=== PATIENT | female | born 1990 | race Caucasian/White ===

== ENCOUNTER 2024-01-28 08:09 | Outpatient (AMB) | payer OTHER, SELFPAY ==
--- NOTE | 2024-01-28 08:20 | AM.OFFWIN_ITS ---
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 Intake Note: pt is here for c.o sore throat, concern of strep Patient Tobacco Use Status: Never used Tobacco Allergies No Known Allergies Allergy (Verified 01/28/24 08:45) Medication List - Last Reconciled 01/28/24 by Meño Nunez, MARY albuterol sulfate 90 mcg/actuation inhalation benzocaine-menthol 15-3.6 mg (Cepacol Sore Throat (benzocaine-menthol)) 1 cedric mucous membrane Q2-4H PRN budesonide 180 mcg/actuation (Pulmicort Flexhaler) 2 inhalations inhalation BID Do you need a note to return to daycare/school/sports/work: Yes HPI HPI Comments History of Present Illness Details Patient is a 33-year-old female in today for sick visit. She states that she developed a sore throat 1 day prior to visit, thought that it was due to allergies and try taking allergy medication with no relief. 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 States that her child at home has similar symptoms. Denies fever, chest pain, shortness a breath, dizziness, nausea, vomiting, diarrhea. PFSH Social History Patient Tobacco Use Status: Never used Tobacco Review of Systems Const All systems reviewed & are unremarkable except as noted in HPI and below Physical Exam Vital Signs: Last Vital Signs Temp 98.8 F 01/28/24 08:21 Pulse 96 01/28/24 08:21 BP 108/66 01/28/24 08:21 Pulse Ox 98 01/28/24 08:21 Oxygen Delivery Method Room Air 01/28/24 08:21 BMI result Body Mass Index 20.2 Vital signs reviewed stable Const Other: Appearance: Alert.? Oriented X3.? No acute distress.? Head: Normocephalic, atraumatic. Eyes: Pupils equal, round and reactive to light.? ENT: +pharynx erythema, No exudate. Tonsils +1. No post nasal drip. TM intact and pearly watt. Neck: Normal inspection.? Neck supple.? CVS: Normal heart rate and rhythm.? Pulses normal.? Respiratory: No respiratory distress.? Breath sounds normal.? Neuro: Oriented X 3.? No motor deficit.? No sensory deficit. CN 2-12 intact Results AMB Rapid Strep AMB Rapid Strep Negative Last Edit by Niall Siddiqui CMA on 01/28/24 08 :35 Assessment & Plan Assessment & Plan (1) Pharyngitis: Comment: Patient strep test in office negative. Likely viral. Patient given Cepacol throat lozenges for sore throat relief. Patient instructed she can also utilize Tylenol and or ibuprofen. Code(s): J02.9 - Acute pharyngitis, unspecified Qualifiers: Pharyngitis/tonsillitis etiology: unspecified etiology Qualified Code(s): J02.9 - Acute pharyngitis, unspecified Plan: Take your medications as prescribed. If you were prescribed antibiotics today, it is important that you take your medication to their entirety, do not skip any doses, do not finish them early. Follow-up with your primary care provider this week. Return to the emergency department with new or worsening symptoms. Such as fevers, chills, chest pain, shortness of breath, nausea, vomiting, dizziness, headache, vision changes, lethargy In case of emergency call 911 Plan Follow-up with PCP Orders: Orders AMB Rapid Strep Screen Today Z13.9 - Encounter for screening, unspecified SARS-CoV2/FLU/RSV Today J06.9 - Acute upper respiratory infection, unspecified Medications: New benzocaine-menthol 15-3.6 mg (Cepacol Sore Throat (benzocaine-menthol)) 1 cedric mucous membrane Q2-4H PRN 16 ea 0RF sore throat Coding Level of Care Code New Pt Level 3 (41112) Diagnoses Pharyngitis, unspecified etiology J02.9 Pharyngitis/tonsillitis etiology: unspecified etiology Time Spent (min) 21
[2024-01-28 08:21] VITALS: BP 108/66; PULSE 96; TEMP 37.1; O2SAT 98; BMI 20.2
== END 2024-01-28 09:27 | disposition home or self-care (01) ==
PROVIDERS: PCP Nurse Practitioner Family; Visit Provider Nurse Practitioner Primary Care
DX: J02.9 Acute pharyngitis, unspecified (principal)
CPT/HCPCS: 87880; 99203

== ENCOUNTER 2024-01-28 10:19 | Outpatient (REF) | payer OTHER, SELFPAY ==
[2024-01-28 11:23] LABS: Influenza A PCR NEGATIVE (Negative); Influenza B PCR NEGATIVE (Negative); Resp Syncy Virus RNA Qual PCR NEGATIVE (Negative); SARS COV2 PCR INHOUSE NEGATIVE (Negative)
== END 2024-01-28 10:20 | disposition home or self-care (01) ==
LOC: HO.LNP 10:19
PROVIDERS: Visit Provider Nurse Practitioner Primary Care
DX: Z11.52 Encounter for screening for COVID-19 (principal); J06.9 Acute upper respiratory infection, unspecified
CPT/HCPCS: 0241U

== ENCOUNTER 2024-06-09 08:08 | Emergency (ER) | payer OTHER, SELFPAY ==
--- NOTE | ~2024-06-09 | US_ITS ---
EXAMINATION: US APPENDIX CLINICAL INFORMATION: RLQ pain, r/o appe COMPARISON: None. TECHNIQUE: Imaging of the right lower quadrant was performed with a high-frequency linear transducer using graded compression. FINDINGS: Appendix: Partially visualized appendix. Location: Right lower quadrant. Fluid-filled: No. Compressible: Yes. Maximum Diameter With Compression (Outer Wall To Outer Wall): 0.3 cm (normal less 0.7 cm). Appendicolith: No. Wall: Hyperemia: No. Thickening (>0.2 cm): No. Loss of Mural Stratification: No. Free Fluid: No. Increased Echogenicity Of Periappendiceal Fat: No. Mesenteric Lymph Nodes: Yes, normal in size measuring up to 3 mm in short axis. Abscess: No. Right Kidney: Normal without hydronephrosis. Bladder: Partly distended and unremarkable. Additional Abnormalities: None. US/US appendix IMPRESSION: Partially visualized normal-appearing appendix with no ancillary findings to suggest appendicitis. Alternative/Additional Diagnosis: None Electronically signed by: Aris Cee MD 06/09/2024 11:37 AM EDT
--- NOTE | ~2024-06-09 | US_ITS ---
EXAMINATION: US PELVIS COMPLETE US PELVIS ENDOVAGINAL WITH DOPPLER CLINICAL INFORMATION: 5 wks preg, right abd pain COMPARISON: None. TECHNIQUE: Transabdominal and transvaginal images of the pelvis were obtained. Color and spectral Doppler evaluation of the ovaries was performed. FINDINGS: UTERUS: Retroverted. Uniform, homogeneous secretory phase endometrium measures 1.5 cm in width. No intrauterine gestational sac identified. RIGHT OVARY: Normal size and echogenicity measuring 2.6 x 1.5 x 1.6 cm, containing a physiologic 1.7 cm corpus luteal cyst LEFT OVARY: Normal size and echogenicity measuring 2.0 x 1.2 x 1.6 cm. Normal size and appearance. FREE FLUID: Small anechoic pelvic cul-de-sac free fluid. US/US OB pelvic and transvaginal IMPRESSION: 1. Findings compatible with a of unknown location, which may reflect early intrauterine gestation, missed spontaneous , or ectopic , though none visualized. Recommend close clinical follow-up with trending of serum beta hCG levels and repeat ultrasound as clinically warranted. 2. Normal ovaries without sonographic evidence of torsion. Electronically signed by: Aris Cee MD 06/09/2024 11:41 AM EDT
[2024-06-09 08:12] VITALS: BP 111/60; PULSE 75; RESP 16; TEMP 36.8; O2SAT 100; BMI 20.2
[2024-06-09 08:30] LABS: MANUAL DIFF FLAG NO
[2024-06-09 08:32] LABS: Appearance Urine Clear; Basophils Percent Auto 0.5 % (0-2); Color Urine Yellow; Eosinophils Absolute Auto 0.2 X10*3/uL (0.0-0.4); Glucose Urine UA Negative (Negative); Hematocrit 40.5 % (37.0-47.0); Hemoglobin 14.3 g/dl (12.0-16.0); Imm Gran Abs Auto 0.02 X10*3/uL (0.00-0.03); Imm Gran Pct Auto 0.3 % (0.0-0.4); Leukocyte Esterase Urine Negative (Negative); Lymphocytes Absolute Auto 2.2 X10*3/uL (1.2-4.9); Lymphocytes Percent Auto 36.1 % (20-40); Mean Corpuscular HGB Conc 35.3 g/dl (31.0-35.0); Mean Corpuscular Hemoglobin 29.7 pg (27.0-33.0); Mean Corpuscular Volume 84.2 fL (80.0-98.0); Mean Platelet Volume 9.8 fL (9.4-12.3); Monocytes Absolute Auto 0.4 X10*3/uL (0.1-1.2); Monocytes Percent Auto 6.6 % (2-11); Neutrophils Absolute Auto 3.2 x10*3/uL (2.0-8.3); Neutrophils Percent Auto 53.5 % (45-73); Nitrite Urine Negative (Negative); PH 8.5 (5.0-9.0); Platelet Count 355 X10*3/uL (160-400); Red Blood Count 4.81 X10*6/uL (4.20-5.50); Urine Blood Negative (Negative); Urine Ketones Negative (Negative); Urine Protein Negative (Neg-Trace); White Blood Count 6.1 X10*3/uL (4.8-10.8)
[2024-06-09 08:53] LABS: Alanine Aminotransferase 14 U/L (0-31); Albumin Level 4.7 g/dL (3.5-5.0); Alkaline Phosphatase 47 U/L (39-117); Anion Gap 12 (12-20); Aspartate Amino Transferase 15 U/L (5-31); Bilirubin Direct 0.2 mg/dL (0.0-0.5); Bilirubin Total 0.6 mg/dL (0.0-1.0); Blood Urea Nitrogen 9 mg/dL (9-16); Calcium 9.8 mg/dL (8.4-10.2); Carbon Dioxide 24 mmol/L (22-29); Chloride 107 mmol/L (96-108); Estimated Glomerular Filt Rate > 60; Glucose Random 98 mg/dL (60-115); Lipase 12 U/L (8-78); Potassium 3.8 mmol/L (3.3-5.1); Sodium 139 mmol/L (135-145); Total Protein 7.8 g/dL (6.5-8.0)
[2024-06-09 08:54] LABS: HCG Quantitative 1021 mIU/mL
--- NOTE | 2024-06-09 09:01 | ED_ITS ---
HPI - Abdominal Pain General Chief Complaint: Abdominal Pain Stated Complaint: Abd pain R side - 5 weeks Time Seen by Provider: 06/09/24 08:59 Source: patient, RN notes reviewed and old records reviewed Mode of arrival: ambulatory Limitations: no limitations History of Present Illness ED Provider: JAY HINSON PA-C HPI narrative: 34 year old A1 female, currently 5 weeks gestation, pmhx significant for Perez's thyroiditis presents to the Emergency Department today for evaluation of right lower quadrant abdominal pain x24 hours. Pain originates in the RLQ and radiates down her RLE and into her right back. Reports pain began while sitting at work yesterday and has been constant since onset, although waxes and wanes in intensity. She rates her pain 4/10 at present. Denies history of similar. No abdominal cramping. Admits to associated nausea without vomiting. She has been taking Tylenol 1000 mg with minimal improvement, last dose around 0200 this morning. Patient reports positive home test. LMP 05/05. She has not followed up with OBGYN for conformational US. This is her 3rd . Reports one living child who is 4 years old and a history of voluntary prior to that. Reports calling the on-call OBGYN last night who advised her to come to the ED to r/o appendicitis. Denies fever, chills, decreased appetite, diarrhea, constipation, dysuria, hematuria, vaginal bleeding, vaginal discharge. Denies history of abdominal surgery. Related Data Home Medications ?Medication ?Instructions ?Recorded ?Confirmed albuterol sulfate 90 mcg/actuation inhalation 01/28/24 01/28/24 aerosol inhaler budesonide 180 mcg/actuation 2 inh inhalation BID 01/28/24 01/28/24 breath activated powder inhaler (Pulmicort Flexhaler) Previous Rx's ?Medication ?Instructions ?Recorded benzocaine 15 mg-menthol 3.6 mg 1 cedric mucous membrane Q2-4H PRN 01/28/24 lozenges (Cepacol Sore Throat sore throat #16 ea (benzocaine-menthol)) Allergies Allergy/AdvReac Type Severity Reaction Status Date / Time lactase [From Dairy Aid] Allergy Swelling Verified 06/09/24 08:13 Review of Systems Review of Systems Constitutional: No fever, chills, fatigue, night sweats, weight changes ENT/Mouth: No ear pain, hearing loss, nasal congestion, sinus pain, rhinorrhea, sore throat Eyes: No eye pain, swelling, redness, vision changes, discharge Cardio: No chest pain, palpitations, ONEAL, orthopnea, peripheral edema Pulm: No SOB, cough, sputum, wheezing, dyspnea, hemoptysis GI: No vomiting, hematemesis, diarrhea, constipation, hematochezia, melena, +RLQ pain, +nausea : No irregular bleeding, dysuria, frequency, urgency, hesitancy, hematuria, flank pain, urinary flow changes, urinary incontinence or retention MSK: No back pain, neck pain, joint pain, myalgias Skin: No lesions, rashes Neuro: No weakness, numbness, paresthesias, LOC, dizziness, headache Psych: No anxiety/panic, depression, SI/HI, AH/VH All other systems reviewed and are negative. [facility] Past Medical History Attestation statement: The following information was validated with the patient. Source: old records reviewed and nursing notes reviewed Social History Social History Patient Tobacco Use Status: Never used Tobacco Advance Directives: No Advance Directives Information Provided: Yes Physical Exam ED Vital Signs: Vital Signs - 24 hr 06/09/24 08:12 06/09/24 12:00 06/09/24 17:55 Temperature 98.2 F 96.7 F L 97.3 F Pulse Rate 75 67 73 Respiratory Rate 16 Blood Pressure 111/60 102/62 113/44 L Pulse Oximetry 100 100 100 Oxygen Delivery Method Room Air Room Air Room Air BMI result Body Mass Index 20.2 vital signs stable Const General: cooperative, healthy appearing, comfortable and no acute distress Orientation/consciousness: patient oriented x3 Limitations: no limitations HENMT Head: Yes normal to inspection, Yes No palpable skull fracture present, Yes normocephalic and Yes atraumatic Eyes General: appearance normal, both eyes and all related structures Conjunctivae: conjunctivae normal Sclerae: sclerae normal Pupils: Equal, round and reactive pupils present Neck Neck: Yes normal visual inspection, Yes full ROM and Yes no lymphadenopathy Resp Effort & Inspection: normal respiratory effort and able to speak in complete sentences Auscultation: clear to auscultation bilaterally Cardio Rate: regular rate Rhythm: regular rhythm GI Other: Soft, nondistended, mildly tender to palpation of right lower quadrant without palpable mass. No rebound or guarding. Negative Rovsing sign. Negative McBurney point tenderness. Normoactive bs x4. General: Yes no CVA tenderness Back/Spine/Pelvis Back: no CVA tenderness Skin General skin exam: no rashes or lesions noted Neuro General: patient oriented x3 Cranial nerves: Yes Equal, round and reactive pupils present Course Course Course Narrative: 0945 -- CBC without leukocytotis or left shift. no anemia. h&h stable. chemistry without acute electrolyte abnormality requiring intervention. no KAREN. normal liver function. bHCG 1021, consistent with GA. urine is negative for infection/ blood. TSH and free T4 wnl. > patient offered vitamin b6/ Benadryl for nausea, Tylenol for pain, and IVF however declining all interventions at this time. > US appendix/ pelvic/TV pending 1714-- US appendix without findings concerning for acute appendicitis. US pelvic/ TV showing findings consistent with of unknown location - question IUP vs missed spontaneous vs ectopic although none visualized. Missed spontaneous unlikely as patient denies vaginal bleeding. Concern for ectopic versus IUP. At this time we do not have OBGYN coverage. Will reach out to [facility] ED for transfer as ectopic cannot definitively be ruled out. Patient agreeable with this. 1750-- Discussed case with Dr. Abigail Becker at [facility] who has accepted patient transfer d/t concern for ectopic . Patient is declining ambulance transfer and would prefer her drive her via private vehicle. She is stable at this time. Advised her to go to the [facility]. Patient is employed at [employer] and is aware of where to go. Patient has remained stable throughout ED visit today. Discussed worrisome signs and symptoms and when to return to the ED. All questions answered at this time. Patient is agreeable with disposition and stable for transfer to [facility]. Medical Decision Making Medical Decision Making [facility] Narrative: 34 year old A1 female, currently 5 weeks gestation, pmhx significant for Perez's thyroiditis presents to the Emergency Department today for evaluation of right lower quadrant abdominal pain x24 hours. VSS. She is nontoxic appearing and in NAD. Abd soft, nondistended, mildly tender to palpation of right lower quadrant without palpable mass. Negative Rovsing sign. Negative McBurney point tenderness. Normoactive bs x4. no CVAT. This female patient presents with lateralized pelvic pain, concerning for?ectopic , IUP, appendicitis. Differential diagnosis includes includes TOA, PID, and other infectious causes but patient has no constitutional symptoms of infection and does not endorse vaginal discharge. Also includes UTI, pyelo, endometriosis, adenomyosis but these are less likely. Doubt other primary gastrointestinal process. Lower suspicion for thyroid abnormality. Plan: labs, UA, bhcg, pelvic US, pain and nausea control, fluid resuscitation, reassessment. Differential Diagnosis Differential Diagnoses: The differential diagnosis associated with the presentation includes as above. Admission/Observation not indicated. Consult Healthcare Provider Management of the patient was discussed with: [employer] [facility] OBGYJulius Becker Lab Data MDM Lab Attestation statement: I reviewed the patient's lab results. as above. 06/09/24 08:27 06/09/24 08:27 Labs: Lab Results 06/09/24 Range/Units 08:27 WBC 6.1 (4.8-10.8) X10*3/uL RBC 4.81 (4.20-5.50) X10*6/uL Hgb 14.3 (12.0-16.0) g/dl Hct 40.5 (37.0-47.0) % MCV 84.2 (80.0-98.0) fL MCH 29.7 (27.0-33.0) pg MCHC 35.3 H (31.0-35.0) g/dl RDW 12.0 (11.0-16.0) % Plt Count 355 (160-400) X10*3/uL MPV 9.8 (9.4-12.3) fL Immature Gran % (Auto) 0.3 (0.0-0.4) % Neut % (Auto) 53.5 (45-73) % Lymph % (Auto) 36.1 (20-40) % [place] % (Auto) 6.6 (2-11) % Eos % (Auto) 3.0 (0-4) % Baso % (Auto) 0.5 (0-2) % Lymph # (Auto) 2.2 (1.2-4.9) X10*3/uL [place] # (Auto) 0.4 (0.1-1.2) X10*3/uL Eos # (Auto) 0.2 (0.0-0.4) X10*3/uL Baso # (Auto) 0.0 (0.0-0.2) X10*3/uL Abs Immat Gran (auto) 0.02 (0.00-0.03) X10*3/uL Absolute Neuts (auto) 3.2 (2.0-8.3) x10*3/uL Absolute Nucleated RBC 0.000 (0.0-0.012) X10*3/uL Nucleated RBC % (auto) 0.0 (0.0-0.2) /100WBC Sodium 139 (135-145) mmol/L Potassium 3.8 (3.3-5.1) mmol/L Chloride 107 (96-108) mmol/L Carbon Dioxide 24 (22-29) mmol/L Anion Gap 12 (12-20) BUN 9 (9-16) mg/dL Creatinine 0.83 (0.5-1.4) mg/dL Estim Creat Clear Calc 72.0 Estimated GFR > 60 Random Glucose 98 (60-115) mg/dL Calcium 9.8 (8.4-10.2) mg/dL Total Bilirubin 0.6 (0.0-1.0) mg/dL Direct Bilirubin 0.2 (0.0-0.5) mg/dL AST 15 (5-31) U/L ALT 14 (0-31) U/L Alkaline Phosphatase 47 (39-117) U/L Total Protein 7.8 (6.5-8.0) g/dL Albumin 4.7 (3.5-5.0) g/dL Lipase 12 (8-78) U/L TSH 2.37 (0.32-4.0) uIU/mL Free T4 1.01 (0.71-1.85) ng/dL Beta HCG, Quant 1021 mIU/mL Urine Color Yellow Urine Appearance Clear Urine pH 8.5 (5.0-9.0) Ur Specific Mims 1.010 (1.005-1.025) Urine Protein Negative (Neg-Trace) mg/dL Urine Glucose (UA) Negative (Negative) mg/dL Urine Ketones Negative (Negative) mg/dL Urine Blood Negative (Negative) Urine Nitrite Negative (Negative) Ur Leukocyte Esterase Negative (Negative) Independent Interpretation I performed an independent interpretation of an: Ultrasound Interpretation: US appendix without thickening of the appendix wall, agree with radiologist's interpretation. US pelvic/ TV without evidence of IUP, agree with radiolgoist's interpretation. Radiology Impression Discussion of test interpretation with radiology: I have reviewed the radiologist's reading. Radiologist Impression: EXAMINATION: US PELVIS COMPLETE US PELVIS ENDOVAGINAL WITH DOPPLER CLINICAL INFORMATION: 5 wks preg, right abd pain COMPARISON: None. TECHNIQUE: Transabdominal and transvaginal images of the pelvis were obtained. Color and spectral Doppler evaluation of the ovaries was performed. FINDINGS: UTERUS: Retroverted. Uniform, homogeneous secretory phase endometrium measures 1.5 cm in width. No intrauterine gestational sac identified. RIGHT OVARY: Normal size and echogenicity measuring 2.6 x 1.5 x 1.6 cm, containing a physiologic 1.7 cm corpus luteal cyst LEFT OVARY: Normal size and echogenicity measuring 2.0 x 1.2 x 1.6 cm. Normal size and appearance. FREE FLUID: Small anechoic pelvic cul-de-sac free fluid. IMPRESSION: 1. Findings compatible with a of unknown location, which may reflect early intrauterine gestation, missed spontaneous , or ectopic , though none visualized. Recommend close clinical follow-up with trending of serum beta hCG levels and repeat ultrasound as clinically warranted. 2. Normal ovaries without sonographic evidence of torsion. Electronically signed by: Aris Cee MD 06/09/2024 11:41 AM EDT US APPENDIX CLINICAL INFORMATION: RLQ pain, r/o appe COMPARISON: None. TECHNIQUE: Imaging of the right lower quadrant was performed with a high-frequency linear transducer using graded compression. FINDINGS: Appendix: Partially visualized appendix. Location: Right lower quadrant. Fluid-filled: No. Compressible: Yes. Maximum Diameter With Compression (Outer Wall To Outer Wall): 0.3 cm (normal less 0.7 cm). Appendicolith: No. Wall: Hyperemia: No. Thickening (>0.2 cm): No. Loss of Mural Stratification: No. Free Fluid: No. Increased Echogenicity Of Periappendiceal Fat: No. Mesenteric Lymph Nodes: Yes, normal in size measuring up to 3 mm in short axis. Abscess: No. Right Kidney: Normal without hydronephrosis. Bladder: Partly distended and unremarkable. Additional Abnormalities: None. IMPRESSION: Partially visualized normal-appearing appendix with no ancillary findings to suggest appendicitis. Alternative/Additional Diagnosis: None Electronically signed by: Aris Cee MD 06/09/2024 11:37 AM EDT RP Independent Historian Clinical information obtained from an independent historian. History obtained from or confirmed by: Spouse External Record Review External record reviewed: Inpatient record Prescription Management I considered prescription management with: Pain Medication Chronic Conditions Patient?s care impacted by: Other () Social Determinants Patient?s care significantly limited by Social Determinants of Health including: Other Social Determinant of Health Medications Administered Discontinued Medications Generic Name Dose Route Start Last Admin Trade Name Arminda PRN Reason Stop Dose Admin Acetaminophen 975 mg 06/09/24 09:06 06/09/24 12:03 Acetaminophen 325 Mg Tablet PO 06/09/24 09:07 975 mg ONCE ONE Administration Diphenhydramine HCl 50 mg 06/09/24 09:06 06/09/24 09:29 Diphenhydramine Hcl 25 Mg Capsule PO 06/09/24 09:07 Not Given ONCE ONE Pyridoxine HCl 25 mg 06/09/24 09:06 06/09/24 09:29 Pyridoxine Hcl (Vitamin B6) 50 Mg Tablet PO 06/09/24 09:07 Not Given ONCE ONE Critical Care Time Critical Care Time Critical Care Time: Yes Total Critical Care Time: 36 Attestation: Critical care time in the amount of 36 minutes has been provided to the patient in terms of direct patient care, frequent reevaluation, consultation with [facility] OBGYN, review and interpretation of medical data and results, and management of potentially life-threatening conditions. This is all outside of any medical procedures. Discharge Plan Discharge Clinical Impression: Elevated serum hCG, Pelvic pain Patient Disposition: [facility] Transfer Details: [facility] w/ accepting physician Dr. Abigail Becker via private vehicle Instructions: Ectopic (DC), (ED), Pelvic Pain (ED) Additional Instructions: Your blood work today is reassuring. Your urine is negative for infection. Your pelvic ultrasound shows findings consistent with of unknown location . We cannot definitively rule out ectopic especially given your pain. We discussed your case with [facility] OBGYN as we do not currently have OBGYN coverage and they are recommending transfer for further evaluation. You are declining ambulance transfer to [facility] and are opting to take private vehicle. Please go to [facility] and look for the [place] entrance for [facility] [place]. Dr. Abigail Becker is the accepting physician. Prescriptions: No Action albuterol sulfate 90 mcg/actuation HFA aerosol inhaler inhalation Pulmicort Flexhaler 180 mcg/actuation aerosol powdr breath activated 2 inh inhalation BID Cepacol Sore Throat (kenji-men) 15-3.6 mg lozenge 1 cedric mucous membrane Q2-4H PRN (Reason: sore throat) Qty: 16 0RF Print Language: Serbian
--- NOTE | 2024-06-09 09:29 | PC.NURSE ---
patient refused medications, states she feels oky right now.
[2024-06-09 10:40] LABS: Free T4 (Free Thyroxine) 1.01 ng/dL (0.71-1.85); Thyroid Stimulating Hormone 2.37 uIU/mL (0.32-4.0)
[2024-06-09 12:00] VITALS: BP 102/62; PULSE 67; TEMP 35.9; O2SAT 100
[2024-06-09] MEDS: Acetaminophen 325 MG TABLET 975 MG PO (12:03)
[2024-06-09 17:55] VITALS: BP 113/44; PULSE 73; TEMP 36.3; O2SAT 100
--- OUTSIDE RECORDS SUMMARY | 2024-06-10 08:07 | XMS_ITS | Continuity of Care Document ---
Author Organization [facility] Address [address] [place] [address]- Care Team Providers Care Juvenile Probation Officer Name Role Phone Mariano ALVAREZ, Chelsy Cherry Primary Care Physician [phone] Encounter [facility] Date(s): 03/12/23 - 03/19/23 [facility] [address] [place] [address]- Encounter Diagnosis History of depression(Discharge Diagnosis) - 03/12/23 Attending Physician: Chelsy Quintana NP Referring Physician: Erich Chavis MD Immunizations Given and Recorded Vaccine Date Status Refusal Reason tetanus-diphtheria toxoids (Td) 03/12/23 Given SARS-CoV-2 (COVID-19) mRNA BNT-162b2 vac 01/23/21 Recorded SARS-CoV-2 (COVID-19) mRNA BNT-162b2 vac 11/25/20 Recorded Problem List Condition Confirmation Course Effective Dates Status Health St [facility] Informant Asthma Confirmed 05/02/20 Active Mixed anxiety and depressive disorder Confirmed 09/10/19 Active Thyroid nodule Confirmed 05/02/20 Active Diagnosis Diagnosis Type Effective Dates Health Status Clinical Service Informant History of depression Discharge Diagnosis 03/12/23 Vital Signs Most recent to oldest [Reference Range]: 1 Height 155 cm (03/12/23 3:13 PM) Weight 49.0 kg (03/12/23 3:13 PM) Oxygen Saturation [94-100 %] 100 % (03/12/23 3:13 PM) Pulse Rate [55-90 bpm] 75 bpm (03/12/23 3:13 PM) Body Mass Index [18.5-24.99 kg/m2] 20.4 kg/m2 (03/12/23 3:13 PM) Blood Pressure [90-138/55-84 mm Hg] 106/ 55mm Hg (03/12/23 3:13 PM) Blood pressure sites Arm, right (03/12/23 3:13 PM) Weight Obtained Via Standing scale (03/12/23 3:13 PM) Patient Care team information Care Team Personnel Name: Chelsy Quintana NP Position: S PCO Associate Professional Member Role: PCP Address: Address: [address] [place] [id number]- Care Team Related Persons Name: MARILYN ROSAS Address: [place] [address]
--- OUTSIDE RECORDS SUMMARY | 2024-06-10 08:07 | XMS_ITS | Continuity of Care Document ---
Author Organization [facility] Hernandez Curry Jono Address [address] [place] [address]- Care Team Providers Care Fire Extinguisher Repairer Name Role Phone Mariano ALVAREZ, Chelsy Cherry Primary Care Physician Encounter [facility] Date(s): 01/31/24 - 03/01/24 [facility] Hernandez Michaelsley Adult [address] [place] [address]- Attending Physician: Admtr, Ar8 Admitting Physician: Admtr, Ar8 Referring Physician: Admtr, Ar8 Allergies, Adverse Reactions, Alerts Substance Reaction Severity Status Lactose rash Active Immunizations Given and Recorded Vaccine Date Status Refusal Reason tetanus-diphtheria toxoids (Td) 03/12/23 Given SARS-CoV-2 (COVID-19) mRNA BNT-162b2 vac 01/23/21 Recorded SARS-CoV-2 (COVID-19) mRNA BNT-162b2 vac 11/25/20 Recorded Medications albuterol CFC free 90 mcg/inh inhalation aerosol 2, puffs, Inhalation, Every 4 hours, PRN, # 6.7 Gm, Refills 11, Tot. Refills 11, Maintenance, 08/15/23 16:03:00 EDT, Aerosol, Route to Pharmacy Electronically, [id number], [facility]/pharmacy #[id number], 155, cm, 08/15/23 10:28:00 EDT, H... Start Date: 08/15/23 Status: Ordered Pulmicort Flexhaler 180 mcg 1 puffs, Inhalation, 2 times a day, # 3 each, 11 Refills, Maintenance, 08/15/23 16:02:00 EDT, Powder, [facility]/pharmacy #[id number], Partial fill upon patient request if the prescription is for a schedule II opioid drug., 1 puffs Inhalation 2 times a day, 155, c... 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
--- OUTSIDE RECORDS SUMMARY | 2024-06-10 08:07 | XMS_ITS | Continuity of Care Document ---
Author Organization [facility] Hernandez Muse Jono Address [address] [place] [address]- Care Team Providers Care Monogram Maker Name Role Phone Mariano ALVAREZ, Chelsy Cherry Primary Care Physician [phone] Encounter [facility] Date(s): 01/31/24 - 02/07/24 [facility] Muse Adult [address] [place] [address]- Encounter Diagnosis Viral pharyngitis(Discharge Diagnosis) - 01/31/24 Attending Physician: Not on Staff, Attending MD Allergies, Adverse Reactions, Alerts Substance Reaction Severity [...] 16:03:00 EDT, Aerosol, Route to Pharmacy Electronically, [id number], [id number], 155, cm, 08/15/23 10:28:00 EDT, H... Start Date: 08/15/23 Status: Ordered Lidocaine Viscous 2% solution 1 application, Topically, 4 times a day, PRN for mouth sore pain, # 100 mL, 0 Refills, Acute 02/18/24 21:00:00 EDT, 01/31/24 11:09:00 EDT, Solution, [id number], Partial fill upon patient request if the prescription is for a schedule II opioid... Start Date: 01/31/24 Stop Date: 02/18/24 Status: Ordered Pulmicort Flexhaler 180 mcg 1 puffs, Inhalation, 2 times a day, # 3 each, 11 Refills, Maintenance, 08/15/23 16:02:00 EDT, Powder, [id number], Partial fill upon patient request if [...] Effective Dates Health Status Clinical Service Informant Viral pharyngitis Discharge Diagnosis 01/31/24 Vital Signs Most recent to oldest [Reference Range]: 1 2 Height 155 cm (01/31/24 11:25 AM) 155 cm (01/31/24 10:49 AM) Weight 49.5 kg (01/31/24 10:49 AM) Pulse Rate [55-90 bpm] 97 bpm *H* (01/31/24 10:49 AM) Body Mass Index [18.5-24.99 kg/m2] 20.6 kg/m2 (01/31/24 10:49 AM) Blood Pressure [90-138/55-84 mm Hg] 98/6 2mm Hg (01/31/24 11:25 AM) 88/51mm Hg *L* (01/31/24 10:49 AM) Temperature [96.8-100.4 DegF] 98.7 DegF (01/31/24 10:49 AM) Blood pressure sites Arm, right (01/31/24 10:49 AM) Temperature Route Oral (01/31/24 10:49 AM) Weight Obtained Via Standing scale (01/31/24 10:49 AM) Social History Social History Type Response Smoking Status Former smoker, quit more than 30 days ago; Other: quit smoking 10 years ago; entered on: 04/11/23 Sex Note * Effie Hi: PERFORM, SIGN, VERIFY Event Display: Patient Education/Instruction Authored Date: [id number] [facility] *BMP So Patricio Zuniga Clinical Summary Name MELINA CASTILLO Age 33 Years 1990 PCP Mariano ALVAREZ, Chelsy Cherry PCP [facility] [id number] Visit Date 01/31/2024 10:46:00 Additional Instructions: Scheduled Appointments?? Future Appointments ?No Future Appointments Scheduled Follow-Up Instructions ?? Diagnosis Medications: Please continue your medications until treatment is completed or stopped by your provider. Discuss any questions related to medications with your provider. Medications to Continue with No Changes These medications were not printed or sent to your pharmacy Albuterol (albuterol CFC free 90 mcg/inh inhalation aerosol) 2 puff(s) Inhalation every 4 hours as needed as needed for wheezing. Refills: 11. Next Dose: Budesonide (Pulmicort Flexhaler 180 mcg) 1 puff(s) Inhalation twice a day. Refills: 11. Next Dose: Allergy Info:?? Lactose Medications Given This Visit Future Orders ?No future orders Future Orders ?No future orders Vital Signs Height 155 cm Weight 49.5 kg BMI 20.6 kg/m2 Blood Pressure 88 mm Hg/51 mm Hg Temperature 98.7 DegF Pulse Rate 97 bpm Respiratory Rate 02 Sat Mode of Delivery / You can now view a summary of your hospital visit from the comfort of your home through a free online portal called [employer] is a website that allows you to securely view your medical information including discharge summary, medications and follow-up visits. ??You can alsosend a secure electronic message to your doctor???s office to request appointments, renew medications or just ask a question. You can enroll at [email or web address] or register during your next office visit. Disclaimer:?? The information provided is of a general nature and is intended to be used in conjunction with the recommendations and advice of your health care practitioner. ??Every effort has been made to ensure that the information provided is accurate and complete at the time it is provided to you however, as your needs change, or, as new ??information becomes available, different or additional instructions may be required. If you have questions, please consult with your primary care provider or pharmacist, as appropriate. ??This information is not intended to serve as substitution for assessment and evaluation by a qualified health care provider. If you do not have a primary care provider, you may find a [facility] provider by calling [facility] Services Link at [phone]. [facility], in keeping with [facility] guidance, no longer requires face masks for staff, patientsor visitors in most situations. Similar to time spent indoors at other locations, there is the chance that you were exposed to respiratory viruses during your time with us (such as flu or COVID-19).? If you develop symptoms concerning for a viral respiratory infection, please seek testing (and treatment if indicated) from your medical provider or home test kit. For information about the plan of care including goals and instructions for your diagnosis, please see the patient education orders section of this document. Patient Education Materials?? The content of this educational material or handout may have been modified, supplemented, or adapted from its original content and format to support your individualized medical care. Patient Care team information Care Team Personnel Name: Chelsy Quintana NP Position: [facility] PCO Associate Professional Member Role: PCP Address: Address: [address] [place] [address]- Care Team Related Persons Name: MARILYN ROSAS Address: [place] [address]
--- OUTSIDE RECORDS SUMMARY | 2024-06-10 08:07 | XMS_ITS | Continuity of Care Document ---
Author Organization [facility] Address [address] [place] [address]- Care Team Providers Care Hospice Care Transitions Coordinator Name Role Phone Not on Staff, PCP Primary Care Physician Unavail able Encounter [facility] NBR [id number] Date(s): 06/12/22 - 07/12/22 [facility] Adult [facility] [address] [place] [address]- Care Team Personnel Name: Not on Staff, PCP
--- OUTSIDE RECORDS SUMMARY | 2024-06-10 08:07 | XMS_ITS | Continuity of Care Document ---
Author Organization [facility] Jono Address [address] [place] [address]- Care Team Providers Care Pharmacoepidemiologist Name Role Phone Chelsy Quintana NP Primary Care Physician Encounter [facility] Date(s): 04/15/23 - 05/15/23 [facility] Adult [address] [place] [address]- Attending Physician: Admtr, Ar8 Admitting Physician: Admtr, [...] Associate Professional Member Role: PCP Address: Address: [address] [place] [address]- Care Team Related Persons Name: DIRKItzel MARILYN Address: [place] [address]
--- OUTSIDE RECORDS SUMMARY | 2024-06-10 08:07 | XMS_ITS | Continuity of Care Document ---
Author Organization [facility] Curry Jono Address [address] [place] [address]- Care Team Providers Care Manager Psychiatry Name Role Phone Mariano ALVAREZ, Chelsy Cherry Primary Care Physician [phone] Encounter [facility] Date(s): 08/19/23 - 09/18/23 [facility] Curry Adult [address] [place] [address]- Allergies, Adverse Reactions, Alerts Substance Reaction Severity [...] 16:03:00 EDT, Aerosol, Route to Pharmacy Electronically, [id number], [facility]/pharmacy #[id number], 155, cm, 08/15/23 10:28:00 EDT, H... Start Date: 08/15/23 Status: Ordered benzonatate 100 mg oral capsule 2 capsule = 200 mg, By Mouth, 3 times a day, PRN as needed for cough, # 30 capsule, 0 Refills, Acute 09/19/23 21:00:00 EST, 08/19/23 14:59:00 EDT, Capsule, [id number], Partial fill upon patient request if the prescription is for a schedule II... Start Date: 08/19/23 Stop Date: 09/19/23 Status: Ordered Pulmicort Flexhaler 180 mcg 1 puffs, Inhalation, 2 times a day, # 3 each, 11 Refills, Maintenance, 08/15/23 16:02:00 EDT, Mahendra, [facility]/pharmacy #[id number], Partial fill upon patient request if the [...] Associate Professional Member Role: PCP Address: Address: [address] [place] [address] [place] [address]- Care Team Related Persons Name: MARILYN ROSAS Address: [place] [address]
--- OUTSIDE RECORDS SUMMARY | 2024-06-10 08:07 | XMS_ITS | Continuity of Care Document ---
Author Organization [facility] Hernandez Curry Jono Address [address] [place] [address]- Care Team Providers Care Naval Aircrewman Tactical Helicopter Name Role Phone Mariano ALVAREZ, Chelsy Cherry Primary Care Physician [phone] Encounter [facility] Date(s): 09/06/23 - 10/06/23 [facility] Hernandez Michaelsley Adult [address] [place] [address]- Allergies, Adverse Reactions, Alerts Substance Reaction Severity [...] 16:03:00 EDT, Aerosol, Route to Pharmacy Electronically, [id number], [facility]/pharmacy #[id number], 155, cm, 08/15/23 10:28:00 EDT, H... Start Date: 08/15/23 Status: Ordered Pulmicort Flexhaler 180 mcg 1 puffs, Inhalation, 2 times a day, # 3 each, 11 Refills, Maintenance, 08/15/23 16:02:00 EDT, Powder, [facility]/pharmacy #[id number], Partial fill upon patient request if the prescription is for a schedule II opioid drug., 1 puffs Inhalation 2 times a day, 155, c... Start Date: 10/26/23 Status: Ordered Problem List Condition Confirmation Course [...] Care team information Care Team Personnel Name: Mariano ALVAREZ, Chelsy Cherry Position: [facility] PCO Associate Professional Member Role: PCP Address: Address: [address] [place] [address]- Care Team Related Persons Name: MARILYN ROSAS Address: [place] [address]
--- OUTSIDE RECORDS SUMMARY | 2024-06-10 08:07 | XMS_ITS | Continuity of Care Document ---
Author Organization [facility] Patricio Jono Address [address] [place] [address]- Care Team Providers Care Supervisor Mechanic Boilermaking Name Role Phone Chelsy Quintana NP Primary Care Physician Encounter [facility] ACCT R [id number] Date(s): 01/08/23 - 04/06/23 [facility] [place] Adult [address] [place] [address]- Attending Physician: Ingris Ley Immunizations Given and Recorded Vaccine Date Status Refusal Reason tetanus-diphtheria toxoids (Td) 03/12/23 Given SARS-CoV-2 (COVID-19) mRNA BNT-162b2 vac 01/23/21 Recorded SARS-CoV-2 (COVID-19) mRNA BNT-162b2 vac 11/25/20 Recorded Problem List Condition Confirmation Course Effective Dates Status Health St atus Informant Asthma Confirmed 05/02/20 Active Mixed anxiety and depressive disorder Confirmed 09/10/19 Active Thyroid nodule Confirmed 05/02/20 Active Patient Care team information Care Team Personnel Name: Chelsy Quintana NP Position: S PCO Associate Professional Member Role: PCP Address: Address: [address] [place] [address] [place] [address]- Care Team Related Persons Name: MARILYN ROSAS Address: [place] [address]
--- OUTSIDE RECORDS SUMMARY | 2024-06-10 08:07 | XMS_ITS | Continuity of Care Document ---
[facility] Address [address] [place] [address]- Care Team Providers Care Superintendent Landfill Operations Name Role Phone Not on Staff, PCP Primary Care Physician Unavail able Encounter [facility] NBR [id number] Date(s): 06/12/22 - 09/02/22 [facility] Adult [address] [address]- Attending Physician: Chema Michael Patient Care team information Care Team Personnel Name: Not on Staff, PCP Position: S Physician (General Medicine) Member Role: PCP Care Team Related Persons Name: MARILYN ROSAS Address: [place] [address]
--- OUTSIDE RECORDS SUMMARY | 2024-06-10 08:07 | XMS_ITS | Continuity of Care Document ---
Author Organization [facility] Address [address] [place] [address]- Care Team Providers Care Premium Cancellation Clerk Name Role Phone Not on Staff, PCP Primary Care Physician Unavail able Encounter [facility] Date(s): 08/03/22 - 09/02/[address] [address]- Attending Physician: Ara Marie Admitting Physician: Ara Marie Referring Physician: Frank ArDara Patient Care team information Care Team Personnel Name: Not on Staff, PCP Position: S Physician (General Medicine) Member Role: PCP Care Team Related Persons Name: MARILYN ROSAS Address: [place] [address]
--- OUTSIDE RECORDS SUMMARY | 2024-06-10 08:07 | XMS_ITS | Continuity of Care Document ---
Author Organization [facility] Hernandez Curry Jono Address [address] [place] [address]- Care Team Providers Care Alley Cleaner Name Role Phone Mariano ALVAREZ, Chelsy Cherry Primary Care Physician [phone] Encounter [facility] Date(s): 08/15/23 - 09/14/23 [facility] Hernandez Curry Adult [address] [place] [address]- Allergies, Adverse Reactions, Alerts Substance Reaction Severity [...] 16:03:00 EDT, Aerosol, Route to Pharmacy Electronically, [id number], [facility]/pharmacy #[id number], 155, cm, 08/15/23 10:28:00 EDT, H... [...] 11 Refills, Maintenance, 08/15/23 16:02:00 EDT, Mahendra, [facility]/pharmacy #[id number], Partial fill upon patient request if the [...] Team Personnel Name: Chelsy Quintana NP Position: [facility] PCO Associate Professional Member Role: PCP Address: Address: [address] [place] [address]- Care Team Related Persons Name: MARILYN ROSAS Address: [place] [address]
--- OUTSIDE RECORDS SUMMARY | 2024-06-10 08:07 | XMS_ITS | Continuity of Care Document ---
Author Organization [facility] Address [address] [place] [address]- Care Team Providers Care Is Architect Name Role Phone Chelsy Quintana NP Primary Care Physician Encounter [facility] Date(s): 04/11/23 - 05/11/23 [facility] [address] [place] [address]- Attending Physician: Ara Marie Admitting Physician: Ara Marie Referring Physician: AdmtrAra Allergies, Adverse Reactions, Alerts Substance Reaction Severity [...] Associate Professional Member Role: PCP Address: Address: [address] [place] [address] [facility] [place] [address]- Care Team Related Persons Name: DIRKItzel MARILYN Address: [place] [address]
--- OUTSIDE RECORDS SUMMARY | 2024-06-10 08:07 | XMS_ITS | Continuity of Care Document ---
Author Organization [facility] Hernandez Muse Jono lt Address [address] [place] [address]- Care Team Providers Care Change Manager Name Role Phone Not on Staff, PCP Primary Care Physician Unavail able Encounter [facility] Date(s): 01/08/23 - 02/07/23 [facility] Patricio Adult [address] [place] [address]- Patient Care team information Care Team Personnel Name: Not on Staff, PCP Position: [facility] Physician (General Medicine) Member Role: PCP Care Team Related Persons Name: MARILYN ROSAS Address: [place] [address]
--- OUTSIDE RECORDS SUMMARY | 2024-06-10 08:08 | XMS_ITS | Continuity of Care Document ---
Author Organization [facility] Curry Jono lt Address [address] [place] [address]- Care Team Providers Care Entry Level Installation Technician Name Role Phone Mariano ALVAREZ, Chelsy Cherry Primary Care Physician [facility] [facility] Date(s): 08/15/23 - 08/22/23 [facility] Curry Adult [address] [place] [address]- Encounter Diagnosis Asthma(Discharge Diagnosis) - 08/15/23 Increased bowel frequency(Discharge Diagnosis) - 08/15/23 Unintentional weight loss(Discharge Diagnosis) - 08/15/23 Attending Physician: Chelsy Quintana NP Allergies, Adverse Reactions, Alerts Substance Reaction Severity [...] 16:03:00 EDT, Aerosol, Route to Pharmacy Electronically, [id number], [facility]/pharmacy #[id number], 155, cm, 08/15/23 10:28:00 EDT, H... Start [...] Effective Dates Health Status Clinical Service Informant Asthma Discharge Diagnosis 08/15/23 Increased bowel frequency Discharge Diagnosis 08/15/23 Unintentional weight loss Discharge Diagnosis 08/15/23 Vital Signs Most recent to oldest [Reference Range]: 1 Height 155 cm (08/15/23 10:28 AM) Weight 47.5 kg (08/15/23 10:28 AM) Oxygen Saturation [94-100 %] 100 % (08/15/23 10:28 AM) Pulse Rate [55-90 bpm] 101 bpm *H* (08/15/23 10:28 AM) Body Mass Index [18.5-24.99 kg/m2] 19.77 kg/m2 (08/15/23 10:28 AM) Blood Pressure [90-138/55-84 mm Hg] 101/ 58mm Hg (08/15/23 10:28 AM) Temperature [96.8-100.4 DegF] 98.0 DegF (08/15/23 10:28 AM) Blood pressure sites Arm, right (08/15/23 10:28 AM) Weight Obtained Via Standing scale (08/15/23 10:28 AM) Social History Social History Type Response Smoking Status Former smoker, quit more than 30 days ago; Other: quit smoking 10 years ago; entered on: 04/11/23 Sex Note * Fernando , Dorys: PERFORM, SIGN, VERIFY Event Display: Patient Education/Instruction Authored Date: [id number] [facility] *NETTIE So Micha Zuniga Clinical Summary Name MELINA CASTILLO Age 33 Years 1990 PCP Mariano ALVAREZ, Chelsy Cherry PCP Visit Date 08/15/2023 10:14:00 Additional Instructions: Scheduled Appointments?? Future Appointments ?No Future Appointments Scheduled Follow-Up Instructions ?? Diagnosis Medications: Please continue your medications until treatment is completed or stopped by your provider. Discuss any questions related to medications with your provider. Medications to Continue with No Changes These medications were not printed or sent to your pharmacy Albuterol (albuterol inhaler (OP)) Next Dose: Allergy Info:?? Lactose Medications Given This Visit Future Orders ?Comprehensive Metabolic Panel? Order Date:08/15/23?- Complete on or after?08/15/23 ?CBC w/ Differential? Order Date:08/15/23?- Complete on or after?08/15/23 ?TSH with T4 Reflex (Adults Only)? Order Date:08/15/23?- Complete on or after?08/15/23 ?Sedimentation Rate? Order Date:08/15/23?- Complete on or after?08/15/23 ?T3 Free? Order Date:08/15/23?- Complete on or after?08/15/23 ?C Reactive Protein? Order Date:08/15/23?- Complete on or after?08/15/23 Vital Signs Height 155 cm Weight 47.5 kg BMI 19.77 kg/m2 Blood Pressure 101 mm Hg/58 mm Hg Temperature 98.0 DegF Pulse Rate 101 bpm Respiratory Rate 02 Sat Mode of Delivery 100 %/ You can now view a summary of your hospital visit from the comfort of your home through a free online portal called [employer]. [employer] is a website that allows you to securely view your medical information including discharge summary, medications and follow-up visits. ??You can alsosend a secure electronic message to your doctor???s office to request appointments, renew medications or just ask a question. You can enroll at [email or web address] or register during your next office visit. [...] primary care provider, you may find a [facility] provider by calling [facility] Link at [phone]. [facility], in keeping with [facility] guidance, no longer requires face masks [...] Personnel Name: Chelsy Quintana NP Position: [facility] PCO Associate Professional Member Role: PCP Address: Address: [address] [place] [address]- Care Team Related Persons Name: MARILYN ROSAS Address: [place] [address]
--- OUTSIDE RECORDS SUMMARY | 2024-06-10 08:08 | XMS_ITS | Continuity of Care Document ---
Author Organization [facility] Hernandez Curry Jono lt Address [address] [place] [address]- Care Team Providers Care Designer/Writer Name Role Phone Mariano ALVAREZ, Chelsy Cherry Primary Care Physician [phone] Encounter [facility] Date(s): 08/15/23 - 09/14/23 [facility] Adult [address] [place] [address]- Attending Physician: Admtr, Ar8 Admitting Physician: Admtr, [...] 16:03:00 EDT, Aerosol, Route to Pharmacy Electronically, [id number], [id number], 155, cm, 08/15/23 10:28:00 EDT, [...] Team Personnel Name: Chelsy Quintana NP Position: [facility] PCO Associate Professional Member Role: PCP Address: Address: [address] [place] [address]- Care Team Related Persons Name: MARILYN ROSAS Address: [place] [address]
--- OUTSIDE RECORDS SUMMARY | 2024-06-10 08:08 | XMS_ITS | Continuity of Care Document ---
Author Organization [facility] Hernandez Curry Jono Address [address] [place] [address]- Care Team Providers Care Learning And Development Assistant Name Role Phone Mariano ALVAREZ, Chelsy Cherry Primary Care Physician Encounter [facility] [place] Date(s): 01/31/24 - 03/01/24 [facility] Hernandez Curry Adult [address] [place] [address]- Encounter Diagnosis Viral pharyngitis(Discharge Diagnosis) - 01/31/24 Allergies, Adverse Reactions, Alerts Substance Reaction Severity [...] 16:03:00 EDT, Aerosol, Route to Pharmacy Electronically, [id number], [facility]/pharmacy #[id number], 155, cm, 08/15/23 10:28:00 EDT, H... Start Date: 08/15/23 Status: Ordered Pulmicort Flexhaler 180 mcg 1 puffs, Inhalation, 2 times a day, # 3 each, 11 Refills, Maintenance, 08/15/23 16:02:00 EDT, Powder, [facility]/pharmacy #[id number], Partial fill upon patient request if [...] Service Informant Viral pharyngitis Discharge Diagnosis 01/31/24 Social History Social History Type Response Smoking Status Former smoker, quit more than 30 days ago; Other: quit smoking 10 years ago; entered on: 04/11/23 Sex Patient Care team information Care Team Personnel Name: Chelsy Quintana NP Position: [facility]O Associate Professional Member Role: PCP Address: Address: [address] [place] [address] [place] [address]- Care Team Related Persons Name: MARILYN ROSAS Address: [place] [address]
--- OUTSIDE RECORDS SUMMARY | 2024-06-10 08:08 | XMS_ITS | Continuity of Care Document ---
Author Organization [facility] Hernandez Curry Jono Address [address] [place] [address]- Care Team Providers Care Director Of Professional Services Name Role Phone Mariano ALVAREZ, Chelsy Cherry Primary Care Physician Encounter [facility] Date(s): 09/10/23 - 10/10/23 [facility] Hernandez Michaelsley Adult [address] [place] [address]- Allergies, Adverse Reactions, Alerts Substance Reaction Severity [...] 16:03:00 EDT, Aerosol, Route to Pharmacy Electronically, [id number], [facility]/pharmacy #[id number], 155, cm, 08/15/23 10:28:00 EDT, H... Start Date: 08/15/23 Status: Ordered Pulmicort Flexhaler 180 mcg 1 puffs, Inhalation, 2 times a day, # 3 each, 11 Refills, Maintenance, 08/15/23 16:02:00 EDT, Powder, [facility]/pharmacy #[id number], Partial fill upon patient request if [...] Personnel Name: Mariano ALVAREZ, Chelsy Cherry Position: [facility] Associate Professional Member Role: PCP Address: Address: [address] [place] [id number]- Care Team Related Persons Name: MARILYN ROSAS Address: [place] [address]
--- OUTSIDE RECORDS SUMMARY | 2024-06-10 08:08 | XMS_ITS | Continuity of Care Document ---
Author Organization [facility] Jono Address [address] [place] [id number]- Care Team Providers Care Import Customs Clearing Agent Name Role Phone Mariano ALVAREZ, Chelsy Cherry Primary Care Physician Encounter [facility] [place] Date(s): 03/12/23 - 05/15/23 [facility] Adult [address] [place] [address]- Attending Physician: Chelsy Quintana NP Referring Physician: Erich Chavis MD Allergies, Adverse Reactions, Alerts Substance Reaction [...] Associate Professional Member Role: PCP Address: Address: [address] [place] [address]- Care Team Related Persons Name: MARILYN ROSAS Address: [place] [address]
--- OUTSIDE RECORDS SUMMARY | 2024-06-10 08:08 | XMS_ITS | Continuity of Care Document ---
Author Organization [facility] Hernandez Curry Jono Address [address] [place] [address]- Care Team Providers Care Sales Representative Advertising Name Role Phone Mariano ALVAREZ, Chelsy Cherry Primary Care Physician [phone] Encounter [facility] Date(s): 08/22/23 - 09/21/23 [facility] Hernandez Michaelsley Adult [address] [place] [address]- Allergies, Adverse Reactions, Alerts Substance Reaction Severity [...] 16:03:00 EDT, Aerosol, Route to Pharmacy Electronically, [id number], [facility]/pharmacy #[id number], 155, cm, 08/15/23 10:28:00 EDT, H... Start Date: 08/15/23 Status: Ordered Pulmicort Flexhaler 180 mcg 1 puffs, Inhalation, 2 times a day, # 3 each, 11 Refills, Maintenance, 08/15/23 16:02:00 EDT, Powder, [facility]/pharmacy #[id number], Partial fill upon patient request if [...] Personnel Name: Mariano ALVAREZ, Chelsy Cherry Position: [facility]O Associate Professional Member Role: PCP Address: Address: [address] [place] [address]- Care Team Related Persons Name: MARILYN ROSAS Address: [place] [address]
== END 2024-06-09 18:18 | disposition short-term general hospital (02) ==
PROVIDERS: Physician Assistant Medical; Emergency Provider Emergency Medicine; PCP Nurse Practitioner Family
DX: O99.281 Endocrine, nutritional and metabolic diseases complicating pregnancy, first trimester (principal); R10.31 Right lower quadrant pain; R10.2 Pelvic and perineal pain; M54.50 Low back pain, unspecified; Z3A.01 Less than 8 weeks gestation of pregnancy; Z79.899 Other long term (current) drug therapy
CPT/HCPCS: 36415; 76705; 76801; 76817; 80048; 80076; 81003; 83690; 84439; 84443; 84702; 85025; 99284; 99285